=== PATIENT | female | born 1980 | race American Indian/Alaskan Native ===

== ENCOUNTER 2016-09-17 06:13 | Day surgery (SDC) | payer MEDICAID ==
--- NOTE | 2016-09-17 08:03 | Discharge Summary ---
Short Stay Discharge Plan Activity: no restrictions Weight Bearing Status: Full Weight Bearing Diet: regular Wound: other (Wet-Moist Gauze dressing changes TID) Follow up with: [facility] [Other] - 6 Weeks WORK,SHANNON Ferro JR, MD [Staff Physician] - 7 Days
--- NOTE | 2016-09-17 08:04 | Short Stay Summary ---
Short Stay Documentation Date of service: 09/17/16 - Allergies and Medications Current Medications: Allergies doxycycline Adverse Reaction (Verified 09/11/16 14:13) Hives, lips swell Home Medications Medication Instructions Recorded Confirmed Last Taken Type ALBUTEROL Inhaler [Proair] 2 puff IH QID PRN 09/11/16 09/11/16 Unknown History - Brief post op/procedure progress note Date of procedure: 09/17/16 Pre-op diagnosis: Hidradenitis Suppurativa of LT Axilla Procedure: Radical Excision of Skin from LT Axilla Wound Vac Application Anesthesia: GETA Surgeon: SHANNON AHUJA JR Estimated blood loss: minimal Specimen disposition: to lab Condition: stable - Disposition Condition at discharge: Good Disposition: DC-01 TO HOME OR SELFCARE Short Stay Discharge Plan Follow up with: [facility] [Other] - 7 Days
[2016-09-17] MEDS ORDERED: DIPRIVAN 10 MG/ML IV ONE (08:22)
[2016-09-17] MEDS ORDERED: DILAUDID ONE (08:22)
[2016-09-17] MEDS ORDERED: XYLOCAINE MPF 2% ONE (08:22)
[2016-09-17] MEDS ORDERED: NACL BACTERIOSTATIC INFILTRATI ONE (08:48)
[2016-09-17] MEDS ORDERED: ZOFRAN IV PRN ×2 (08:52→10:19)
[2016-09-17] MEDS ORDERED: PERCOCET 5/325 PO PRN (08:52)
--- NOTE | 2016-09-17 08:52 | Anesthesia Consultation ---
Anesthesia Consult and Med Hx Date of service: 09/17/16 - Airway Anesthetic Teeth Evaluation: Good ROM Head & Neck: Adequate Mental/Hyoid Distance: Adequate Mallampati Class: Class II Intubation Access Assessment: Good - Pulmonary Exam CTA: Yes - Cardiac Exam Cardiac Exam: RRR - Pre-Operative Health Status ASA Pre-Surgery Classification: ASA2 Proposed Anesthetic Plan: General - Pulmonary Hx Smoking: Yes (CIGARETTES 1 PPW X 23 YRS) Hx Asthma: Yes (remote, no meds in years) Hx Sleep Apnea: No - Central Nervous System Hx Psychiatric Problems: No - Hematic Hx Anemia: Yes - Other Systems Hx Cancer: No
--- NOTE | 2016-09-17 08:53 | Anesthesia Day of Surgery ---
Anesthesia Day of Surgery - Day of Surgery Patient Examined: Yes Patient H&P Reviewed: Yes Patient is NPO: Yes
[2016-09-17] MEDS ORDERED: VERSED IV NR (09:00)
[2016-09-17] MEDS ORDERED: PEPCID PO NR (09:00)
[2016-09-17] MEDS ORDERED: NACL 0.9% 1000 ML 1,000 ML ONE (09:14)
[2016-09-17 09:15] LABS: Hematocrit 39.3 % (30.3-42.9); Mean Corpuscular HGB Conc 33 % (30-34); Mean Corpuscular Hemoglobin 28 pg (28-32); Mean Corpuscular Volume 83 fl (79-97); Platelet Count 260 K/mm3 (140-440); Red Blood Count 4.72 M/mm3 (3.65-5.03); Red Cell Distribution Width 14.3 % (13.2-15.2); White Blood Count 7.6 K/mm3 (4.5-11.0)
[2016-09-17] MEDS ORDERED: NACL 0.9% IR ONE (09:42)
[2016-09-17] MEDS ORDERED: ZOFRAN ONE (09:47)
[2016-09-17] MEDS: DILAUDID IV PRN ×2 (10:15→10:25)
--- NOTE | 2016-09-17 10:26 | Post Anesthesia Evaluation ---
- Post Anesthesia Evaluation Patient Participated: Yes Airway Patent: Yes Stable Respiratory Function: Yes Temp > 96.8F: Yes Pain Manageable: Yes Adequeate Hydration: Yes Anesthesia Complications: No Block Receding Appropriately: Not Applicable
[2016-09-17] MEDS ORDERED: NORCO 5/325 PO PRN (10:35)
[2016-09-17] MEDS ORDERED: NORCO 5/325 ONE (10:38)
[2016-09-17 11:37] VITALS: BP 123/71
[2016-09-17] MEDS ORDERED: BENADRYL IV ONE (12:05)
--- NOTE | 2016-09-17 16:39 | Operative Report ---
Operative Report Operative Report: 09/17/16 Preoperative diagnosis: Hidradenitis suppurativa Postoperative diagnosis: Same Procedure: Radical excision of skin from left axilla Surgeon: Db Mortensen M.D. Description of procedure: Patient was brought into the operating room and placed on the table in supine position. Following administration of general anesthesia left axilla was prepped with a Betadine solution and draped in the usual sterile manner. #10 blade scalpel was used to circumferentially incise the skin of the left axilla that is hairbearing and involved with hidradenitis suppurativa. The skin incision was deepened through subcutaneous fat and the skin excised using the electrocautery which was sent to pathology as a specimen. Moistening gauze dressing was applied across the wound and will be changed 3 times per day until such time as the wound VAC arrives to be applied by home health nursing. Db Mortensen M.D.
== END 2016-09-17 12:20 | disposition home or self-care (01) ==
LOC: OR 06:13
PROVIDERS: ATTEND Plastic Surgery
DX: L73.2 Hidradenitis suppurativa (principal); D64.9 Anemia, unspecified; F17.210 Nicotine dependence, cigarettes, uncomplicated; J45.909 Unspecified asthma, uncomplicated; Z72.89 Other problems related to lifestyle; Z88.1 Allergy status to other antibiotic agents; Z79.899 Other long term (current) drug therapy; Z82.61 Family history of arthritis; Z81.8 Family history of other mental and behavioral disorders; Z83.49 Family history of other endocrine, nutritional and metabolic diseases; Z82.3 Family history of stroke; Z82.49 Family history of ischemic heart disease and other diseases of the circulatory system
CPT/HCPCS: 11450; 36415; 81025; 85027; 88305; J1170; J1200; J2250; J2405; J2704; J7030

== ENCOUNTER 2016-10-15 07:39 | Day surgery (SDC) | payer MEDICAID ==
[~2016-10-15 07:39] MED LIST: ANCEF/STERILE WATER 2 GM/20 ML IV NR
[2016-10-15] MEDS ORDERED: PEPCID PO NR (08:00)
[2016-10-15] MEDS ORDERED: VERSED IV NR (08:00)
[2016-10-15] MEDS ORDERED: NACL 0.9% 1000 ML 1,000 ML IV SCH (08:00)
--- NOTE | 2016-10-15 09:08 | Anesthesia Day of Surgery ---
Anesthesia Day of Surgery - Day of Surgery Patient Examined: Yes Patient H&P Reviewed: Yes Patient is NPO: Yes
--- NOTE | 2016-10-15 09:09 | Anesthesia Consultation ---
Anesthesia Consult and Med Hx Date of service: 10/15/16 - Airway Anesthetic Teeth Evaluation: Good ROM Head & Neck: Adequate Mental/Hyoid Distance: Adequate Mallampati Class: Class II Intubation Access Assessment: Probably Good - Pulmonary Exam CTA: Yes - Cardiac Exam Cardiac Exam: RRR - Pre-Operative Health Status ASA Pre-Surgery Classification: ASA2 Proposed Anesthetic Plan: General - Pulmonary Hx Smoking: Yes (<1 PPD) Hx Asthma: Yes Hx Pneumonia: Yes Hx Sleep Apnea: No - Cardiovascular System Hx Hypertension: No - Central Nervous System Hx Seizures: Yes (CHILDHOOD) Hx Psychiatric Problems: No - Hematic Hx Anemia: Yes - Other Systems Hx Cancer: No Hx Obesity: Yes
[2016-10-15] MEDS ORDERED: NACL BACTERIOSTATIC INFILTRATI ONE (09:17)
[2016-10-15] MEDS ORDERED: ZOFRAN ONE (09:27)
[2016-10-15] MEDS ORDERED: XYLOCAINE MPF 2% ONE (09:27)
[2016-10-15] MEDS ORDERED: DECADRON ONE (09:27)
[2016-10-15] MEDS ORDERED: DIPRIVAN 10 MG/ML IV ONE (09:27)
[2016-10-15] MEDS ORDERED: DILAUDID ONE (09:28)
[2016-10-15] MEDS ORDERED: ZOFRAN IV PRN (09:30)
[2016-10-15 09:41] LABS: Hematocrit 37.4 % (30.3-42.9); Hemoglobin 12.2 gm/dl (10.1-14.3)
[2016-10-15] MEDS: DILAUDID IV PRN ×4 (11:55→12:31)
[2016-10-15] MEDS ORDERED: NACL 0.9% IR ONE (11:59)
--- NOTE | 2016-10-15 12:12 | Post Anesthesia Evaluation ---
- Post Anesthesia Evaluation Patient Participated: Yes Airway Patent: Yes Stable Respiratory Function: Yes Nausea/Vomiting: No Temp > 96.8F: Yes Pain Manageable: Yes Adequeate Hydration: Yes Anesthesia Complications: No Block Receding Appropriately: Not Applicable Patient on Ventilator: No
[2016-10-15] MEDS ORDERED: PERCOCET 5/325 ONE (12:46)
[2016-10-15] MEDS ORDERED: PERCOCET 5/325 PO PRN (12:48)
--- NOTE | 2016-10-15 13:27 | Operative Report ---
PREOPERATIVE DIAGNOSES: 1. Open wound of left axilla. 2. Hidradenitis suppurativa. POSTOPERATIVE DIAGNOSES: 1. Open wound of left axilla. 2. Hidradenitis suppurativa. PROCEDURE: 1. Tangential excisional prep of left axilla 120 square cm. 2. Split thickness skin graft from left thigh to left axilla 120 square cm. 3. Application of wound VAC, 120 square cm. SURGEON: Db Mortensen MD DESCRIPTION OF PROCEDURE: The patient was brought to the operating room, placed on the table in supine position. Following administration of general anesthesia, the left axilla was prepped with Betadine solution, draped in usual sterile manner as was the left thigh. Tangential excisional prep of the wound was performed using a 10 blade scalpel until healthy bleeding tissue was encountered. Guerrero Brown dermatome set at of an inch was used to harvest skin graft from the left thigh meshed one and half to one, secured in place over the recipient site with milly, covered by Xeroform gauze and a wound VAC in the usual sterile manner. Donor site was covered with Xeroform gauze, covered by sterile occlusive dressing. The patient tolerated the procedure well and returned to recovery in stable condition. JOB# [id number] FTW/DELFINO
[2016-10-15] MEDS ORDERED: TORADOL IV ONE (13:43)
[2016-10-15] MEDS ORDERED: BENADRYL IV ONE (13:43)
[2016-10-15 18:03] VITALS: BP 144/88
== END 2016-10-15 16:22 | disposition home or self-care (01) ==
LOC: OR 07:39
PROVIDERS: ATTEND Plastic Surgery
DX: L73.2 Hidradenitis suppurativa (principal); J45.909 Unspecified asthma, uncomplicated; D64.9 Anemia, unspecified; F17.210 Nicotine dependence, cigarettes, uncomplicated; E66.9 Obesity, unspecified; Z68.33 Body mass index [BMI] 33.0-33.9, adult; Z72.89 Other problems related to lifestyle; Z88.1 Allergy status to other antibiotic agents; Z87.01 Personal history of pneumonia (recurrent); Z82.61 Family history of arthritis; Z80.3 Family history of malignant neoplasm of breast; Z81.8 Family history of other mental and behavioral disorders; Z82.49 Family history of ischemic heart disease and other diseases of the circulatory system; Z83.49 Family history of other endocrine, nutritional and metabolic diseases
CPT/HCPCS: 15002; 15100; 15101; 36415; 81025; 85014; 85018; J0690; J1100; J1170; J1200; J1885; J2250; J2405; J2704; J7030

== ENCOUNTER 2017-09-16 06:34 | Day surgery (SDC) | payer MEDICAID ==
[2017-09-16] MEDS ORDERED: LEVAQUIN 500MG/100ML 500 MG/100 ML BAG IV NR (08:20)
[2017-09-16] MEDS ORDERED: NACL BACTERIOSTATIC INFILTRATI ONE (08:28)
[2017-09-16] MEDS ORDERED: XYLOCAINE CARDIAC IV ONE (08:40)
[2017-09-16] MEDS ORDERED: DILAUDID ONE (08:41)
[2017-09-16] MEDS ORDERED: DIPRIVAN 10 MG/ML IV ONE (08:41)
[2017-09-16] MEDS ORDERED: LACTATED RINGERS 1,000 ML IV SCH (09:00)
[2017-09-16] MEDS ORDERED: ZOFRAN ONE (09:00)
[2017-09-16] MEDS ORDERED: DECADRON ONE (09:00)
[2017-09-16] MEDS ORDERED: ROBINUL ONE (09:00)
[2017-09-16] MEDS ORDERED: VERSED IV NR (09:00)
[2017-09-16 09:02] LABS: Hematocrit 37.6 % (30.3-42.9); Hemoglobin 12.3 gm/dl (10.1-14.3)
--- NOTE | 2017-09-16 09:31 | Anesthesia Day of Surgery ---
Anesthesia Day of Surgery - Day of Surgery Patient Examined: Yes Patient H&P Reviewed: Yes Patient is NPO: Yes
--- NOTE | 2017-09-16 09:32 | Anesthesia Consultation ---
Anesthesia Consult and Med Hx Date of service: 09/16/17 - Airway Anesthetic Teeth Evaluation: Good ROM Head & Neck: Adequate Mental/Hyoid Distance: Adequate Mallampati Class: Class II Intubation Access Assessment: Probably Good - Pulmonary Exam CTA: Yes - Cardiac Exam Cardiac Exam: RRR - Pre-Operative Health Status ASA Pre-Surgery Classification: ASA3 Proposed Anesthetic Plan: General (Ga with LMA ok) - Pulmonary Hx Smoking: Yes (<1 PPD) Hx Asthma: Yes Hx Pneumonia: Yes Hx Sleep Apnea: No - Cardiovascular System Hx Hypertension: No - Central Nervous System Hx Seizures: Yes (CHILDHOOD) Hx Psychiatric Problems: No - Hematic Hx Anemia: Yes - Other Systems Hx Alcohol Use: Yes (DAILY-1 GLASS OF WINE) Hx Substance Use: No Hx Cancer: No Hx Obesity: Yes
[2017-09-16] MEDS ORDERED: ZOFRAN IV PRN (10:00)
[2017-09-16] MEDS ORDERED: DEMEROL IV PRN (10:00)
[2017-09-16] MEDS ORDERED: TORADOL IV PRN (10:00)
[2017-09-16] MEDS ORDERED: SUBLIMAZE ONE ×2 (10:10→10:44)
[2017-09-16] MEDS: DILAUDID IV PRN ×2 (11:20→11:35)
[2017-09-16] MEDS ORDERED: BENADRYL ONE (11:47)
[2017-09-16] MEDS ORDERED: BENADRYL IV ONE (12:00)
[2017-09-16] MEDS ORDERED: PERCOCET 5/325 PO SCH (13:04)
--- NOTE | 2017-09-16 13:16 | Operative Report ---
PREOPERATIVE DIAGNOSES: 1. Hidradenitis suppurativa of left breast. 2. Hidradenitis suppurativa of mons pubis. 3. Hidradenitis suppurativa of bilateral groins. 4. Hidradenitis suppurativa of bilateral peritoneum. PROCEDURES: 1. Excision of hidradenitis suppurativa of left breast. 2. Complex closure of left breast 5.5 cm. 3. Excision of hidradenitis suppurativa of mons pubis. 4. Complex closure of mons pubis 20 cm. 5. Excision of hidradenitis suppurativa of bilateral groins. 6. Complex closure of bilateral groins 21 cm. 7. Excision of hidradenitis suppurativa of bilateral peritoneum. 8. Complex closure of the perineum 14 cm. SURGEON: Db Mortensen MD BURIAL VAULT SETTER: José Luis Villarreal CSA. DESCRIPTION OF PROCEDURE: The patient was brought to the operating room and placed on the table in supine position. Following administration of general anesthesia, the patient was placed into a lithotomy position. The breast, mons pubis, bilateral groins and perineum were prepped with Betadine solution, draped in usual sterile manner. A #10 blade scalpel was used to circumferentially excise all of the areas involving hidradenitis suppurativa, sent to pathology as specimens. Hemostasis controlled using electrocautery. Undermining was performed to achieve closure without undue tension using interrupted 2-0 Monocryl sutures followed by milly and a sterile dressing. The patient tolerated the procedure well and returned to recovery room in stable condition. JOB# [id number] FTW/NTS
[2017-09-16 20:30] VITALS: BP 125/61
--- NOTE | 2017-09-16 22:30 | Discharge Summary ---
Short Stay Discharge Plan Activity: other (No strenuous Activity) Weight Bearing Status: Full Weight Bearing Diet: regular Wound: remove dressing (72hrs) Additional Instructions: YOU HAD PAIN PILLS 1:25 PM. Follow up with: SWEET[facility]ATTI [Primary Care Provider] - 6 Weeks WORK,SHANNON Ferro JR, MD [Staff Physician] - 7 Days Forms: Outpatient Surgery DC Inst.
--- NOTE | 2017-09-16 22:36 | Short Stay Summary ---
Short Stay Documentation Date of service: 09/16/17 - Allergies and Medications Current Medications: Allergies cephalexin [From Keflex] Allergy (Verified 09/16/17 08:07) Hives doxycycline Adverse Reaction (Verified 09/11/16 14:13) Hives, lips swell Home Medications Medication Instructions Recorded Confirmed Last Taken Type HYDROcodone/APAP 10-325 [[place] 7.5 each PO Q6HR PRN 10/09/16 09/16/17 2 Months Ago History 10/325] ~07/17/17 Aspirin/Acetaminophen/Caffeine 1 each PO PRN PRN 09/16/17 09/16/17 09/11/17 History [Excedrin Migraine Caplet] Clindamycin [Clindamycin CAP] 300 mg PO BID 09/16/17 09/16/17 09/11/17 History Ibuprofen 800 mg PO PRN PRN 09/16/17 09/16/17 09/10/17 History diphenhydrAMINE [Benadryl CAP] 25 mg PO Q8HR PRN 09/16/17 09/16/17 09/11/17 History - Brief post op/procedure progress note Date of procedure: 09/16/17 Pre-op diagnosis: Hidradenitis of LT Breast/Mons Pubis/Tom. Groins/Tom. Perineum Post-op diagnosis: same Procedure: Excision of Hidradenitis of LT Breast Complex Closure of LT Breast 5.5cm Excision of Hidradenitis of Mons Pubis Complex Closure of Mons Pubis 20cm Excision of Hidradenitis of Tom. Groins Complex Closure of Tom. Groins 21cm Excision of Hidradenitis of Tom. Perineum Complex Closure of Tom. Perineum 14 cm Anesthesia: GETA Surgeon: SHANNON AHUJA JR Estimated blood loss: minimal Specimen disposition: to lab Condition: stable - Disposition Condition at discharge: Good Disposition: DC- TO HOME OR SELFCARE Short Stay Discharge Plan Additional Instructions: YOU HAD PAIN PILLS 1:25 PM. Follow up with: [facility] [Primary Care Provider] - 6 Weeks SHANNON AHUJA JR, MD [Staff Physician] - 7 Days Forms: Outpatient Surgery DC Inst.
== END 2017-09-16 15:12 | disposition home or self-care (01) ==
LOC: OR 06:34
PROVIDERS: ATTEND Plastic Surgery
DX: L73.2 Hidradenitis suppurativa (principal); L72.0 Epidermal cyst; J45.909 Unspecified asthma, uncomplicated; E66.9 Obesity, unspecified; F17.210 Nicotine dependence, cigarettes, uncomplicated; Z88.1 Allergy status to other antibiotic agents
CPT/HCPCS: 11404; 11462; 19499; 36415; 81025; 85014; 85018; 88305; J1100; J1170; J1200; J1885; J1956; J2001; J2250; J2405; J2704; J3010; J7120